=== PATIENT | female | born 1950 | race Caucasian/White ===

== ENCOUNTER 2016-10-10 11:08 | Outpatient (CLI) | payer MEDICARE, OTHER | END 2016-10-10 11:09 | disposition home or self-care (01) | DX: Z12.31 Encounter for screening mammogram for malignant neoplasm of breast (principal) ==

== ENCOUNTER 2017-10-19 08:26 | Day surgery (SDC) | payer MEDICARE, OTHER ==
[2017-10-19] MEDS ORDERED: LACTATED RINGERS 1,000 ML IV ONE (08:29)
[2017-10-19] MEDS ORDERED: fentaNYL 100 MCG/2 ML VIAL IVP ONE (09:30)
[2017-10-19] MEDS ORDERED: MIDAZOLAM 2 MG/2 ML VIAL IVP ONE (09:30)
[2017-10-19 09:56] VITALS: BP 113/68
== END 2017-10-19 08:27 | disposition home or self-care (01) ==
LOC: SDS 08:26
PROVIDERS: ATTEND Surgery
PROC: 0DBK8ZX Excision of Ascending Colon, Via Natural or Artificial Opening Endoscopic, Diagnostic (ICD-10-PCS; principal; 2017-10-19 09:30)
DX: Z12.11 Encounter for screening for malignant neoplasm of colon (principal); M06.9 Rheumatoid arthritis, unspecified; D12.3 Benign neoplasm of transverse colon; K64.8 Other hemorrhoids
CPT/HCPCS: 45380; J7120